=== PATIENT | male | born 1980 | race Asian ===

== ENCOUNTER 2020-01-05 21:41 | Emergency (ER) | payer SELFPAY ==
[~2020-01-05] VITALS: Ht 167.6 cm; Wt 93.0 kg
[2020-01-05 22:00] VITALS: BP 114/65
--- NOTE | 2020-01-05 22:00 | NUR ---
ED Nurse Note: Pt walked into ED from home for c/o active gum bleeding since 1100 today. Pt states he had a deep teeth cleaning and began bleeding from that procedure and was instructed that some bleeding is normal. No trauma noted. Pt denies taking any blood thinners. Pt is actively bleeding upon ED arrival. Pt is aaox4, breathing is normal and unlabored, NAD.
--- NOTE | 2020-01-05 22:51 | Emergency Room Report ---
History of Present Illness General Chief Complaint: Toothache Source: Patient Present Illness HPI Is a 39-year-old male presents after persistent bleeding from dental procedure. Patient had recent deep cleaning to teeth earlier today. States this occurred approximately a 10 hours prior to arrival. He had noticed persistent bleeding. Denies any prior history of bleeding disorder or any medications. Is not taking any anticoagulants. Denies feeling dizzy or lightheaded. Report having persistent bleeding from the procedure site despite using tea bags. Denies any current other locations of discomfort. Allergies: Coded Allergies: No Known Allergies (Unverified , 01/05/20) COVID-19 Screening Contact w/high risk pt: No Recent Travel to affected area: No Experienced COVID-19 symptoms?: No COVID-19 Testing performed [employer]: No Patient History Past Medical History: see triage record Reviewed Nursing Documentation: PMH: Agreed Nursing Documentation-PMH Past Medical History: No Stated History Review of Systems All Other Systems: negative except mentioned in HPI Physical Exam Vital Signs Date Time Temp Pulse Resp B/P (MAP) Pulse Ox O2 Delivery O2 Flow Rate FiO2 01/05/20 22:26 98.1 107 16 114/65 (81) 92 Room Air General Appearance: well appearing, no apparent distress, alert, GCS 15, non- toxic Head: normocephalic, atraumatic ENT: hearing grossly normal, normal voice, other - Slight bleeding from multiple areas to the gingival areas of oropharynx. Neck: full range of motion, supple Respiratory: no respiratory distress, speaking full sentences Musculoskeletal: no calf tenderness Neurologic: normal gait Psychiatric: mood/affect normal Skin: no rash Medical Decision Making Diagnostic Impression: Primary Impression: Gingiva hemorrhage Additional Impression: Bleeding from mouth ER Course Patient presented for gingival bleeding after dental procedure. Differential diagnosis include was not limited to anemia, coagulopathy, among others. Because of complexity of patient's case laboratory tests ordered.Patient was noted to have some bleeding to the gingival area and was given topical tranexamic acid. Patient was noted to have some improvement in bleeding subsequently. He appears to be stable for outpatient management. Said he felt better and had decreased bleeding from his mouth. Patient was informed of mild coagulopathy. He was advised to have a recheck with his physician. Bleeding was noted to have improved. He was advised to return if any worsening. Patient was advised to follow-up with his dentist for recheck tomorrow. He is advised to return if worsening bleeding. Last Vital Signs Date Time Temp Pulse Resp B/P (MAP) Pulse Ox O2 Delivery O2 Flow Rate FiO2 01/05/20 22:26 98.1 107 16 114/65 (81) 92 Room Air Status: improved Disposition: HOME, SELF-CARE Condition: Stable Referrals: NON PHYSICIAN (PCP) Jeffrey Douglas MD Jan 05, 2020 22:51
[2020-01-05 23:19] LABS: BASOPHILS % (AUTO) 2.2 % (0.0-2.0); HEMATOCRIT 38.8 % (42.0-52.0); HEMOGLOBIN 12.1 G/DL (14.2-18.0); LYMPHOCYTES % (AUTO) 24.6 % (20.0-45.0); MEAN CORPUSCULAR VOLUME 101 FL (80-99); MONOCYTES % (AUTO) 9.2 % (1.0-10.0); PLATELET COUNT 199 K/UL (150-450); RED BLOOD COUNT 3.86 M/UL (4.70-6.10); RED CELL DISTRIBUTION WIDTH 16.8 % (11.6-14.8)
--- NOTE | 2020-01-05 23:30 | NUR ---
ED Nurse Note: Pt reports decreased amount of blood. Pt does not appear to be actively bleeding like upon ED arrival after medication. Pt is requesting to be DC home.
[2020-01-05 23:32] LABS: INR 1.3 (0.9-1.1)
[2020-01-05 23:45] VITALS: BP 115/70
--- NOTE | 2020-01-05 23:45 | NUR ---
ER DISCHARGE NOTE: Patient is cleared to be discharged per ERMD, pt is aox4, on room air, with stable vital signs. pt was given dc instructions, pt was able to verbalize understanding, pt id band removed. pt is able to ambulate with steady gait. pt took all belongings.
== END 2020-01-05 23:45 | disposition home or self-care (01) ==
LOC: EMR 22:37
DX: K06.8 Other specified disorders of gingiva and edentulous alveolar ridge (principal)
CPT/HCPCS: 36415; 85025; 85610; 85730; 99283